=== PATIENT | male | born 1965 | race African-American/Black ===

== ENCOUNTER 2017-05-08 19:16 | Inpatient (IN) ==
[2017-05-08] MEDS ORDERED: MORPHINE 2 MG/1 ML SYRINGE IV STA (19:30)
[2017-05-08] MEDS ORDERED: DIPH/TET/ACEL PERT BOOSTER VACCINE 0.5 ML VIAL IM ONE ×2 (19:36→21:20)
[2017-05-08] MEDS ORDERED: ceFAZolin 2,000 MG in SODIUM CHLORIDE 0.9% 100 ML IV STA (19:36)
[2017-05-08] MEDS ORDERED: MORPHINE 2 MG/1 ML SYRINGE ONE (19:46)
[2017-05-08] MEDS ORDERED: ONDANSETRON 4 MG/2 ML VIAL ONE (19:46)
[2017-05-08 19:47] LABS: Basophils # 0.1 10*3/uL (0.0-0.2); Basophils % 0.3 % (0.0-0.8); Eosinophils % 0.1 % (0.00-10.9); Hematocrit 42.5 VOL% (42.0-52.0); Hemoglobin 13.9 GM/DL (14.0-18.0); Immature Granulocytes % 0.8 %; Immature Granulocytes Absolute 0.14 #; Lymphocytes # 3.7 10*3/uL (1.4-4.0); Lymphocytes % 20.9 % (21.2-54.2); Mean Corpuscular HGB Conc 32.7 GM/DL (32-36); Mean Corpuscular Hemoglobin 31 PG (27-34); Mean Platelet Volume 9.6 FL (9.6-12.0); Monocytes # 0.7 10*3/uL (0.11-0.8); Neutrophils # 12.9 10*3/uL (1.4-7.4); Neutrophils % 73.9 % (38.7-73.9); Platelet Count 297 T/CUMM (130-400); Red Blood Count 4.52 MC/CUMM (3.8-5.5); Red Cell Distribution Width 14.9 % (9.3-17.3); White Blood Count 17.5 T/CUMM (4-12)
[2017-05-08] MEDS ORDERED: ONDANSETRON 4 MG/2 ML VIAL IV STA (19:47)
[2017-05-08] MEDS ORDERED: LACTATED RINGERS 2,000 ML IV ONE (19:47)
[2017-05-08 19:55] LABS: PT Patient Result 10.2 SECS
[2017-05-08] MEDS ORDERED: MIDAZOLAM 10 MG/2 ML VIAL IV STA (20:00)
[2017-05-08] MEDS ORDERED: MIDAZOLAM 10 MG/2 ML VIAL ONE ×3 (20:06→20:30)
[2017-05-08 20:22] LABS: Albumin 3.8 G/DL (3.4-5.0); Bilirubin,Total 0.4 MG/DL (0.2-1.0); Calcium 8.2 MG/DL (8.5-10.1); Osmolality,Calculated 287.8 MOS/KG (273-304); Potassium 3.9 MMOL/L (3.5-5.1); Total Protein 7.4 G/DL (6.4-8.3)
[2017-05-08 20:32] LABS: Troponin I Only 0.274 NG/ML (0.00-0.045)
[2017-05-08] MEDS ORDERED: FLUMAZENIL 1 MG/10 ML VIAL IV STA (20:52)
[2017-05-08] MEDS ORDERED: LACTATED RINGERS 1,000 ML IV ONE (20:59)
[2017-05-08] MEDS ORDERED: HYDROmorphone 2 MG/1 ML VIAL IV STA (21:08)
[2017-05-08] MEDS ORDERED: SODIUM CHLORIDE 0.9% 200 ML IV ONE (21:17)
[2017-05-08] MEDS ORDERED: ceFAZolin 1,000 MG VIAL ONE (21:18)
[2017-05-08] MEDS ORDERED: LIDOCAINE 1%/EPI INJ 20 ML VIAL INFILTRAT STA (21:27)
[2017-05-08] MEDS ORDERED: HYDROmorphone 2 MG/1 ML VIAL ONE (21:30)
[2017-05-08] MEDS ORDERED: ONDANSETRON 4 MG/2 ML VIAL IV PRN (22:20)
[2017-05-09 01:38] LABS: Barbiturates Screen,Urine Negative (Negative); Benzodiazepines Screen,Urine Positive (Negative); Cannabinoid Screen,Urine Negative (Negative); Opiate Screen,Urine Positive (Negative); Phencyclidine Screen,Urine Negative (Negative)
[2017-05-09] MEDS: KETOROLAC 15 MG/1 ML VIAL IV SCH ×4 (02:15→17:52)
[2017-05-09] MEDS: DEXTROSE 5% LACTATED RINGERS 1,000 ML IV SCH ×4 (02:23→22:44)
[2017-05-09] MEDS ORDERED: LIDOCAINE 2% 20 ML VIAL ONE (03:42)
[2017-05-09] MEDS ORDERED: HYDROmorphone 2 MG/1 ML VIAL IV PRN ×4 (06:07→10:55)
[2017-05-09] MEDS ORDERED: ceFAZolin 1,000 MG in SYRINGE 1 EACH IV ONE (07:10)
[2017-05-09] MEDS: PANTOPRAZOLE 40 MG TABLET PO SCH ×2 (07:29→11:14)
[2017-05-09] MEDS ORDERED: ceFAZolin 1,000 MG VIAL ONE (09:28)
[2017-05-09] MEDS: LACTATED RINGERS 1,000 ML IV SCH ×2 (10:15→22:43)
[2017-05-09] MEDS ORDERED: MAGNESIUM HYDROXIDE SUSP 30 ML UDCUP PO PRN (10:34)
[2017-05-09] MEDS ORDERED: SEVOFLURANE 1 UNIT/15 MINUTE INH ONE (10:54)
[2017-05-09] MEDS ORDERED: PROPOFOL 200 MG/20 ML VIAL IV ONE (10:54)
[2017-05-09] MEDS ORDERED: MEPERIDINE 25 MG/1 ML VIAL IV PRN (10:55)
[2017-05-09] MEDS ORDERED: fentaNYL 100 MCG/2 ML VIAL ONE (10:55)
[2017-05-09] MEDS ORDERED: ONDANSETRON 4 MG/2 ML VIAL IV PRN (10:55)
[2017-05-09] MEDS ORDERED: SUCCINYLCHOLINE 200 MG/10 ML VIAL ONE (10:55)
[2017-05-09] MEDS ORDERED: ROCURONIUM 100 MG/10 ML VIAL IV ONE (10:55)
[2017-05-09] MEDS ORDERED: MIDAZOLAM 2 MG/2 ML VIAL ONE (10:55)
[2017-05-09] MEDS ORDERED: MEPERIDINE 50 MG/1 ML VIAL ONE (10:55)
[2017-05-09] MEDS ORDERED: LACTATED RINGERS 1,000 ML IV ONE (10:56)
[2017-05-09] MEDS: ceFAZolin 1,000 MG in SYRINGE 1 EACH IV SCH ×2 (13:31→21:24)
[2017-05-10] MEDS: KETOROLAC 15 MG/1 ML VIAL IV SCH ×5 (00:34→23:39)
[2017-05-10 05:07] LABS: Basophils # 0.1 10*3/uL (0.0-0.2); Basophils % 0.4 % (0.0-0.8); Eosinophils % 0.1 % (0.00-10.9); Hematocrit 27.7 VOL% (42.0-52.0); Hemoglobin 9.4 GM/DL (14.0-18.0); Immature Granulocytes % 0.5 %; Immature Granulocytes Absolute 0.06 #; Lymphocytes # 1.8 10*3/uL (1.4-4.0); Lymphocytes % 14.3 % (21.2-54.2); Mean Corpuscular HGB Conc 33.9 GM/DL (32-36); Mean Corpuscular Hemoglobin 31 PG (27-34); Mean Corpuscular Volume 92.3 FL (87-102); Monocytes # 0.8 10*3/uL (0.11-0.8); Monocytes % 6.7 % (1.7-12.7); Neutrophils # 9.6 10*3/uL (1.4-7.4); Platelet Count 169 T/CUMM (130-400); Red Cell Distribution Width 15.1 % (9.3-17.3); White Blood Count 12.3 T/CUMM (4-12)
[2017-05-10] MEDS: ceFAZolin 1,000 MG in SYRINGE 1 EACH IV SCH (05:16)
[2017-05-10 05:33] LABS: Hypochromasia 1+
[2017-05-10 05:34] LABS: Microcytosis Slight; Platelet Estimate Adequate
[2017-05-10] MEDS: PANTOPRAZOLE 40 MG TABLET PO SCH (11:34)
[2017-05-10] MEDS: DEXTROSE 5% LACTATED RINGERS 1,000 ML IV SCH (12:54)
[2017-05-10] MEDS: LACTATED RINGERS 1,000 ML IV SCH (12:54)
[2017-05-11] MEDS ORDERED: DILTIAZEM CD 120 MG CAPSULE PO ONE (01:02)
[2017-05-11] MEDS: METOPROLOL TARTRATE 5 MG/5 ML VIAL IV SCH ×3 (01:08→01:19)
[2017-05-11 06:18] LABS: Basophils % 0.3 % (0.0-0.8); Eosinophils # 0.1 10*3/uL (0.0-0.87); Eosinophils % 0.7 % (0.00-10.9); Hematocrit 27.8 VOL% (42.0-52.0); Immature Granulocytes % 0.3 %; Immature Granulocytes Absolute 0.03 #; Lymphocytes # 2.1 10*3/uL (1.4-4.0); Lymphocytes % 24.4 % (21.2-54.2); Mean Corpuscular HGB Conc 32.4 GM/DL (32-36); Mean Corpuscular Hemoglobin 30 PG (27-34); Mean Corpuscular Volume 93.9 FL (87-102); Mean Platelet Volume 10.6 FL (9.6-12.0); Monocytes # 0.6 10*3/uL (0.11-0.8); Monocytes % 6.6 % (1.7-12.7); Neutrophils # 5.9 10*3/uL (1.4-7.4); Neutrophils % 67.7 % (38.7-73.9); Platelet Count 154 T/CUMM (130-400); Red Blood Count 2.96 MC/CUMM (3.8-5.5); Red Cell Distribution Width 14.4 % (9.3-17.3); White Blood Count 8.7 T/CUMM (4-12)
[2017-05-11] MEDS: KETOROLAC 15 MG/1 ML VIAL IV SCH ×3 (06:25→17:45)
[2017-05-11 06:50] LABS: Calcium 7.9 MG/DL (8.5-10.1); Magnesium 1.9 MG/DL (1.8-2.4); Osmolality,Calculated 275.5 MOS/KG (273-304); Potassium 3.4 MMOL/L (3.5-5.1)
[2017-05-11] MEDS ORDERED: INFLUENZA VIRUS VACCINE 0.5 ML SYRINGE IM ONE (09:00)
[2017-05-11] MEDS: SOTALOL 80 MG TABLET PO SCH ×2 (10:01→21:11)
[2017-05-11] MEDS: PANTOPRAZOLE 40 MG TABLET PO SCH (10:01)
[2017-05-11] MEDS: RIVAROXABAN 15 MG TABLET PO SCH (10:02)
[2017-05-12] MEDS: KETOROLAC 15 MG/1 ML VIAL IV SCH ×2 (01:44→05:34)
[2017-05-12 06:02] LABS: Basophils % 0.2 % (0.0-0.8); Eosinophils # 0.1 10*3/uL (0.0-0.87); Eosinophils % 1.2 % (0.00-10.9); Hematocrit 23.9 VOL% (42.0-52.0); Hemoglobin 7.9 GM/DL (14.0-18.0); Immature Granulocytes % 0.5 %; Immature Granulocytes Absolute 0.04 #; Lymphocytes # 1.9 10*3/uL (1.4-4.0); Lymphocytes % 23.2 % (21.2-54.2); Mean Corpuscular HGB Conc 33.1 GM/DL (32-36); Mean Corpuscular Hemoglobin 31 PG (27-34); Mean Corpuscular Volume 94.8 FL (87-102); Mean Platelet Volume 11.3 FL (9.6-12.0); Monocytes # 0.7 10*3/uL (0.11-0.8); Neutrophils # 5.5 10*3/uL (1.4-7.4); Neutrophils % 66.9 % (38.7-73.9); Platelet Count 156 T/CUMM (130-400); Red Blood Count 2.52 MC/CUMM (3.8-5.5); Red Cell Distribution Width 14.3 % (9.3-17.3); White Blood Count 8.3 T/CUMM (4-12)
[2017-05-12 06:47] LABS: Eosinophils 1 % (0-10); Hypochromasia 1+; Lymphocytes 28 % (20-55); Platelet Estimate Normal; Segmented Neutrophils 68 % (50-85); Total Cells Counted 100
[2017-05-12 06:48] LABS: Microcytosis Slight
[2017-05-12 06:50] LABS: Calcium 8.2 MG/DL (8.5-10.1); Osmolality,Calculated 276.5 MOS/KG (273-304); Potassium 3.4 MMOL/L (3.5-5.1)
[2017-05-12] MEDS: POTASSIUM CHLORIDE 20 MEQ TABLET PO PRN ×3 (09:25→15:13)
[2017-05-12] MEDS: SOTALOL 80 MG TABLET PO SCH (09:25)
[2017-05-12] MEDS: RIVAROXABAN 15 MG TABLET PO SCH (09:25)
[2017-05-12] MEDS: PANTOPRAZOLE 40 MG TABLET PO SCH (09:26)
[2017-05-12 13:26] VITALS: BP 135/76
== END 2017-05-12 19:30 | disposition home or self-care (01) | DRG 481 ==
LOC: EDBD → EDUNIT# → N.ED 19:16 → N.EDINP 22:59 → N.CC 23:41 → N.3E 05-10 16:30
PROVIDERS: ADMIT Surgery; ATTEND Surgery